=== PATIENT | female | born 1970 | race Caucasian/White ===

== ENCOUNTER → 2023-02-25 08:03 | Outpatient (BNVA) | payer OTHER, SELFPAY | PROVIDERS: Family Provider Nurse Practitioner Family; PCP Clinical Nurse Specialist Adult Health; Visit Provider Clinical Nurse Specialist Adult Health | DX: I10 Essential (primary) hypertension (principal) | CPT/HCPCS: 80053; 80061; 84443; 85025 ==

== ENCOUNTER → 2024-03-15 12:48 | Outpatient (BNVA) | payer OTHER, SELFPAY | PROVIDERS: Family Provider Nurse Practitioner Family; PCP Clinical Nurse Specialist Adult Health; Visit Provider Clinical Nurse Specialist Adult Health | DX: I10 Essential (primary) hypertension (principal); E66.01 Morbid (severe) obesity due to excess calories | CPT/HCPCS: 80053; 80061; 83036; 84443; 85025 ==

== ENCOUNTER 2024-03-29 12:54 | Outpatient (CLI) | payer OTHER, SELFPAY ==
--- NOTE | 2024-03-29 13:00 | MM_ITS ---
WS: [id number] BILATERAL SCREENING DIGITAL TOMOSYNTHESIS MAMMOGRAM WITH CAD HISTORY: screening COMPARISON: 11/25/2017, 02/16/2013 Bilateral CC and MLO views with tomosynthesis and synthetic mammography submitted. Computer aided det ection analyzed. Breast composition: There are scattered areas of fibroglandular density. No suspicious masses, microc alcifications or architectural distortion. MM/[place] [id number] IMPRESSION: BI-RADS: 1 - Negative. FOLLOW UP: 1 Year Follow-up
== END 2024-03-29 12:55 | disposition home or self-care (01) ==
LOC: RAD 12:55
PROVIDERS: Family Provider Nurse Practitioner Family; PCP Clinical Nurse Specialist Adult Health; Visit Provider Clinical Nurse Specialist Adult Health
DX: Z12.31 Encounter for screening mammogram for malignant neoplasm of breast (principal); R92.323 Mammographic fibroglandular density, bilateral breasts
CPT/HCPCS: 77063; 77067

== ENCOUNTER 2024-06-12 19:44 | Observation (INO) | payer OTHER, SELFPAY ==
[2024-06-12] VITALS (34 sets, daily range): BP systolic 126–237; BP diastolic 67–144; PULSE 62–91; RESP 16–20; TEMP 36.6; O2SAT 81–100; BMI 43.0
--- NOTE | 2024-06-12 20:19 | W.ED.ABDPA2 ---
HPI - Abdominal Pain General: Chief Complaint: Abdominal Pain Stated Complaint: abd pain Time Seen by Provider: 06/12/24 20:11 History of Present Illness: 53-year-old female with history of hypertension and obesity who presents to the emergency room with right lower quadrant abdominal pain. She says she felt like she had a bowel movement most of the day. The pain started several hours ago while she was in another town working. She tried to have bowel movements on the way home and could not. She took some laxative when she got home and had a soft bowel movement which was not like her usual constipation she says. Pain is continued to get much worse. She is crying in pain on presentation. She has had some nausea but no vomiting. No dysuria. She has had multiple abdominal surgeries including hysterectomy and ovary removal, gallbladder removal and hernia repairs. As well as a spinal surgery through the abdomen. No known fevers. No chest pain. No shortness of breath. No altered mental status Related Data Home Medications Medication Instructions Recorded Confirmed aspirin 81 mg tablet,delayed 81 mg PO DAILY 01/28/23 03/15/24 release (Adult Aspirin Regimen) cholecalciferol (vitamin D3) 25 25 mcg PO DAILY 01/28/23 03/15/24 mcg (1,000 unit) capsule fexofenadine 180 mg tablet 180 mg PO DAILY 01/28/23 03/15/24 (Allergy Relief (fexofenadine)) hawthorn 500 mg capsule mg PO 01/28/23 03/15/24 magnesium citrate,mag oxide 250 mg mg PO 01/28/23 03/15/24 capsule melatonin 10 mg tablet 10 mg PO DAILY 01/28/23 03/15/24 tocophersolan (vitamin E TPGS) 75 unit PO 01/28/23 03/15/24 unit/mL oral drops zinc acetate 50 mg (zinc) capsule 50 mg PO DAILY 01/28/23 03/15/24 (Galzin) Previous Rx's Medication Instructions Recorded solgar 1 cap PO DAILY #30 caps 01/28/23 losartan 100 mg tablet 100 mg PO DAILY #90 tabs 03/15/24 amlodipine 10 mg tablet 10 mg PO DAILY #90 tabs 05/17/24 Allergies Allergy/AdvReac Type Severity Reaction Status Date / Time cefaclor [From [facility]] Allergy Intermediate hives Verified 06/12/24 20:01 Milk Containing Products Allergy Intermediate migraine Verified 06/12/24 20:01 (Dairy) wheat Allergy Intermediate stomach Verified 06/12/24 20:01 issues codeine Allergy ADR-Vomitin Verified 06/12/24 20:01 g Review of Systems Narrative: Constitutional symptoms: Negative except as documented in HPI. Skin symptoms: Negative except as documented in HPI. Eye symptoms: Negative except as documented in HPI. ENMT symptoms: Negative except as documented in HPI. Respiratory symptoms: Negative except as documented in HPI. Cardiovascular symptoms: Negative except as documented in HPI. Gastrointestinal symptoms: Negative except as documented in HPI. Genitourinary symptoms: Negative except as documented in HPI. Musculoskeletal symptoms: Negative except as documented in HPI. Neurologic symptoms: Negative except as documented in HPI. Psychiatric symptoms: Negative except as documented in HPI. Endocrine symptoms: Negative except as documented in HPI. PFSH ED PFSH: Medical History Morbid obesity due to excess calories Hx of cardiac murmur Venous insufficiency Essential hypertension Surgical History History of back surgery Hx of hysterectomy for benign reasons. no further cervical cancer screening. 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 Physical Exam Narrative: EXAM NARRATIVE: General: Alert, no acute distress. Skin: Warm, dry. Head: Normocephalic, atraumatic. Neck: Supple, trachea midline. Eye: Extraocular movements are intact. Ears, nose, mouth and throat: mucosa moist. Cardiovascular: Regular, Normal peripheral perfusion. Respiratory: Lungs are clear to auscultation, respirations are non-labored, breath sounds are equal, Symmetrical chest wall expansion. Gastrointestinal: Soft, right lower quadrant tenderness to palpation, Non distended Musculoskeletal: Normal ROM, no deformity. Neurological: Alert and oriented, No focal neurological deficit observed. Psychiatric: Cooperative, appropriate mood & affect. Course Vital Signs: Vital signs: Vital Signs Temperature 97.8 F 06/12/24 19:52 Pulse Rate 68 06/12/24 22:06 Respiratory Rate 16 06/12/24 22:06 Blood Pressure 141/67 06/12/24 22:45 Pulse Oximetry 81 L 06/12/24 22:45 Oxygen Delivery Me thod Nasal Cannula 06/12/24 22:45 Oxygen Flow Rate 2 06/12/24 22:45 MDM - Abdominal Pain Medical Decision Making Medical decision making: Differential diagnosis for this patient with right lower quadrant abdominal pain including but not limited to and based on the above HPI, review of systems and physical exam: Ureterolithiasis. Urinary tract infection. Appendicitis. colitis. small bowel obstruction. Crohn's flare. Pancreatitis. Cholelithiasis or cholecystitis. Hepatitis. Diverticulitis. Constipation. ovarian cyst. ovarian torsion Workup: Orders were placed to evaluate differential diagnosis based on the above differential, HPI and exam: Lab Review: Laboratory results were reviewed and interpreted by myself the emergency room physician. Patient does have some leukocytosis with a white count of 11.5. No anemia. Hemoglobin 12.6. No renal failure. BUN and creatinine are 10 and 0.7. No evidence of urinary tract infection. CT of the abdomen pelvis with contrast: Findings compatible with an early acute appendicitis with no evidence of perforation. This was reviewed and interpreted by myself the emergency room physician. I also reviewed the radiology report. I reviewed the patient's medical record Reexamination: Patient has had difficult to control pain and vomiting. She received a total of 3 of Dilaudid and 12 of Zofran and is still having symptoms. We will try morphine and Compazine and Benadryl at this point. No altered mental status. No focal motor deficits. I discussed with her the findings and that we will admit her on antibiotics. Consultation: I spoke with Dr. Manley who is on-call for general surgery who agrees to admission. He recommends Zosyn. N.p.o. diet. Assessment and plan: Acute appendicitis ?IV Zofran and IV Dilaudid, IV Zosyn, IV Compazine, IV Benadryl and IV morphine all given in the emergency room. -I discussed the patient with the hospitalist on-call who is admitting the patient. - Discussed findings and plan with patient. Answered any questions. - All laboratory values were reviewed and interpreted personally by myself, the ER physician - All imaging was reviewed and interpreted personally by myself, the ER physician. - Evaluation and treatment of this problem were appropriate in the emergency setting Lab Data 06/12/24 20:17 06/12/24 20:17 Labs/Radiology: Radiology Impressions Abdomen/Pelvis CT 06/12/24 21:17 IMPRESSION: 1. Findings compatible with early/mild acute appendicitis without evidence of perforation. 2. Hepatomegaly. 3. Colonic diverticulosis without diverticulitis. 4. Status post cholecystectomy. Laboratory Results WBC 11.46 10^3/uL (3.29-11.43) H 06/12/24 20:17 RBC 4.24 10^6/uL (3.85-5.65) 06/12/24 20:17 Hgb 12.90 g/dL (11.27-16.99) 06/12/24 20:17 Hct 38.6 % (36-47) 06/12/24 20:17 MCV 91.0 fl (85-98) 06/12/24 20:17 MCH 30.4 pg (27-33) 06/12/24 20:17 MCHC 33.4 g/dL (30-55) 06/12/24 20:17 RDW 13.8 % (12.1-15.1) 06/12/24 20:17 Plt Count 246 10^3/cmm (157-399) 06/12/24 20:17 MPV 9.9 fL (7.4-10.4) 06/12/24 20:17 Neut % (Auto) 81.6 % 06/12/24 20:17 Lymph % (Auto) 10.0 % 06/12/24 20:17 [place] % (Auto) 6.5 % 06/12/24 20:17 Eos % (Auto) 1.0 % 06/12/24 20:17 Baso % (Auto) 0.6 % 06/12/24 20:17 Neut # (Auto) 9.34 10^3/uL (1.8-7.7) H 06/12/24 20:17 Lymph # (Auto) 1.2 10^3/uL (0.8-4.8) 06/12/24 20:17 [place] # (Auto) 0.7 10^3/uL (0.2-0.9) 06/12/24 20:17 Eos # (Auto) 0.1 10^3/uL (0.0-0.8) 06/12/24 20:17 Baso # (Auto) 0.1 10^3/uL (0.0-0.1) 06/12/24 20:17 Nucleated RBC % (auto) 0 % 06/12/24 20:17 Nucleated RBCs # 0.0 /100WBC 06/12/24 20:17 Sodium 137 mmol/L (136-145) 06/12/24 20:17 Potassium 3.8 mmol/L (3.5-5.1) 06/12/24 20:17 Chloride 99 mmol/L (98-107) 06/12/24 20:17 Carbon Dioxide 24 mmol/L (22-29) 06/12/24 20:17 Anion Gap 17.8 (5-19) 06/12/24 20:17 BUN 10 mg/dL (6-20) 06/12/24 20:17 Creatinine 0.7 mg/dL (0.5-0.9) 06/12/24 20:17 GFR Calculation 87.5 mL/min (90-130) L 06/12/24 20:17 Glucose 133 mg/dL (65-115) H 06/12/24 20:17 Calculated Osmolality 285 mOsm/kg (285-295) 06/12/24 20:17 Calcium 9.3 mg/dL (8.5-10.5) 06/12/24 20:17 Total Bilirubin 0.3 mg/dL (0.15-1.2) 06/12/24 20:17 AST 18 U/L (0-32) 06/12/24 20:17 ALT 23 U/L (0-33) 06/12/24 20:17 Alkaline Phosphatase 103 U/L (35-105) 06/12/24 20:17 Total Protein 7.4 g/dL (6.6-8.7) 06/12/24 20:17 Albumin 4.6 g/dL (3.5-5.2) 06/12/24 20:17 Globulin 2.8 g/dL (1.3-4.6) 06/12/24 20:17 Lipase 16 U/L (13-60) 06/12/24 20:17 Urine Color Yellow (Yellow) 06/12/24 20:12 Urine Appearance Clear (CLEAR) 06/12/24 20:12 Urine pH 6.5 (5-7) 06/12/24 20:12 Ur Specific [place] 1.022 (1.005-1.030) 06/12/24 20:12 Urine Protein Negative (Negative) 06/12/24 20:12 Urine Glucose (UA) Negative (Normal) 06/12/24 20:12 Urine Ketones 1+ (Negative) H 06/12/24 20:12 Urine Blood Negative (Negative) 06/12/24 20:12 Urine Nitrate Negative (Negative) 06/12/24 20:12 Urine Bilirubin Negative (Negative) 06/12/24 20:12 Urine Urobilinogen 1.0 mg/dL (Negative) 06/12/24 20:12 Ur Leukocyte Esterase Negative (Negative) 06/12/24 20:12 Urine RBC 0-2 /hpf (0-2) 06/12/24 20:12 Urine WBC 0-5 /hpf (0-5) 06/12/24 20:12 Ur Squamous Epith Cells 0-5 /hpf (0-5) 06/12/24 20:12 Amorphous Sediment Not Reportable 06/12/24 20:12 Urine Bacteria None seen /hpf (NONE) 06/12/24 20:12 Hyaline Casts 0-4 /lpf H 06/12/24 20:12 All radiology interpretation(s) finalized by discharge Discharge Plan Discharge Patient Disposition: Admitted As Inpatient Clinical Impression: Acute appendicitis Condition: Stable Coding Level of Care Code ED Grade Setter for Zohra Haynes
[2024-06-12 20:26] LABS: Bilirubin Urine Negative (Negative); Blood Urine Negative (Negative); Glucose Urine UA Negative (Normal); Ketones Urine 1+ (Negative); Leukocyte Esterase Urine Negative (Negative); Nitrate Urine Negative (Negative); Protein Urine Negative (Negative); Specific Gravity, Urine 1.022 (1.005-1.030); Urine Appearance Clear (CLEAR); Urine Color Yellow (Yellow); pH Urine 6.5 (5-7)
[2024-06-12 20:28] LABS: Add Urine Microscopic? YES; Bacteria Urine None Seen /hpf; Hyaline Casts Urine 0-4 /lpf; RBC Urine 0-2 /hpf (0-2); Squamous Epithelial Cell Urine 0-5 /hpf (0-5); WBC Urine 0-5 /hpf (0-5)
[2024-06-12] MEDS: ondansetron 2 mg/ML SDV 2 mL 4 MG IVP (20:28)
[2024-06-12] MEDS: HYDROmorphone 1 mg/mL INJ 1 mL IVP (20:29)
[2024-06-12 20:39] LABS: Basophils # 0.1 10^3/uL (0.0-0.1); Basophils % 0.6 %; Eosinophils # 0.1 10^3/uL (0.0-0.8); Hematocrit 38.6 % (36-47); Lymphocytes # 1.2 10^3/uL (0.8-4.8); Mean Corpuscular HGB Conc 33.4 g/dL (30-55); Mean Corpuscular Hemoglobin 30.4 pg (27-33); Mean Platelet Volume 9.9 fL (7.4-10.4); Monocytes # 0.7 10^3/uL (0.2-0.9); Monocytes % 6.5 %; Neutrophils # 9.34 10^3/uL (1.8-7.7); Neutrophils % 81.6 %; Nucleated Red Blood Cells % 0 %; Platelet Count 246 10^3/cmm (157-399); Red Blood Count 4.24 10^6/uL (3.85-5.65); Red Cell Distribution Width 13.8 % (12.1-15.1); White Blood Count 11.46 10^3/uL (3.29-11.43)
[2024-06-12 21:14] LABS: Alanine Aminotransferase 23 U/L (0-33); Albumin Level 4.6 g/dL (3.5-5.2); Alkaline Phosphatase 103 U/L (35-105); Aspartate Amino Transferase 18 U/L (0-32); Blood Urea Nitrogen 10 mg/dL (6-20); Calcium 9.3 mg/dL (8.5-10.5); Carbon Dioxide 24 mmol/L (22-29); Creatinine Clr Calc Pharmacy 144.5899; Globulin 2.8 g/dL (1.3-4.6); Glomerular Filtration Rate 87.5 mL/min (90-130); Glucose 133 mg/dL (65-115); Lipase 16 U/L (13-60); Total Bilirubin 0.3 mg/dL (0.15-1.2); Total Protein 7.4 g/dL (6.6-8.7)
[2024-06-12] MEDS: ketorolac 30 mg/mL INJ IVP (21:16)
--- NOTE | 2024-06-12 21:17 | CTR_ITS ---
PROCEDURE INFORMATION: Exam: CT Abdomen And Pelvis With Contrast Exam date and time: 06/12/2024 9:45 PM Age: 53 years old Clinical indication: Abdominal pain TECHNIQUE: Imaging protocol: Computed tomography of the abdomen and pelvis with contrast. Radiation optimization: All CT scans at this facility use at least one of these dose optimization techniques: automated exposure control; mA and/or kV adjustment per patient size (includes targeted exams where dose is matched to clinical indication); or iterative reconstruction. Contrast material: OMNI 350; Contrast volume: 100 ml; Contrast route: INTRAVENOUS (IV); COMPARISON: No relevant prior studies available. RADIATION DOSE METRICS: Total DLP (mGy-cm): 1270.58 FINDINGS: Lungs: Mild bibasilar atelectasis. Liver: The liver is enlarged, measuring 21.5 cm craniocaudal. No mass. Gallbladder and biliary ducts: Status post cholecystectomy. Pancreas: Mild atrophy of the pancreas. No ductal dilatation. Spleen: Normal. No splenomegaly. Adrenal glands: Normal. No mass. Kidneys and ureters: The right kidney is under rotated. No hydronephrosis. Stomach and bowel: Colonic diverticulosis without evidence of acute diverticulitis. No bowel obstruction. Appendix: The appendix is mildly dilated up to 1 cm. Several hypodense foci within the lumen near the base of the appendix may represent appendicoliths. Mild periappendiceal fat stranding. No evidence of perforation or periappendiceal abscess formation. Intraperitoneal space: Unremarkable. No free air. No significant fluid collection. Vasculature: Unremarkable. No abdominal aortic aneurysm. Lymph nodes: Unremarkable. No enlarged lymph nodes. Urinary bladder: Unremarkable as visualized. Reproductive: Status post hysterectomy. No suspicious adnexal mass. Bones/joints: Interbody cage graft at L4-L5 and L5-S1. No acute fracture. Soft tissues: Unremarkable. CT/CT abdomen pelvis w con* [id number] IMPRESSION: 1. Findings compatible with early/mild acute appendicitis without evidence of perforation. 2. Hepatomegaly. 3. Colonic diverticulosis without diverticulitis. 4. Status post cholecystectomy.
[2024-06-12] MEDS: HYDROmorphone 1 mg/mL INJ 1 mL 2 MG IVP (21:18)
[2024-06-12] MEDS: iohexol 350 mg/mL 500 mL Btl (per mL) IV (21:44)
[2024-06-12] MEDS: ondansetron 2 mg/ML SDV 2 mL 8 MG IVP (22:16)
[2024-06-12 22:48] LABS: Anion Gap 17.8 (5-19); Chloride 99 mmol/L (98-107); Osmolality Calculated 285 mOsm/kg (285-295); Potassium 3.8 mmol/L (3.5-5.1); Sodium 137 mmol/L (136-145)
[2024-06-12] MEDS: diphenhydrAMINE 50 mg/mL SDV 1mL 25 MG IVP (23:26)
[2024-06-12] MEDS: prochlorperazine 10 mg/2 mL Inj IVP (23:27)
[2024-06-13] VITALS (27 sets, daily range): BP systolic 115–163; BP diastolic 67–104; PULSE 53–74; RESP 15–18; TEMP 36.2–36.8; O2SAT 91–99; BMI 41.8
[2024-06-13] MEDS: piperacillin-tazobactam 4.5 GM in sodium chloride 0.9% (plus) 50 ML IV ×2 (00:14→08:00)
[2024-06-13] MEDS: morphine 4 mg/mL SDV 1 mL IVP ×2 (06:45→11:07)
[2024-06-13] MEDS: ondansetron 2 mg/ML SDV 2 mL 4 MG IVP ×2 (06:45→09:28)
[2024-06-13 06:46] LABS: Basophils # 0.1 10^3/uL (0.0-0.1); Basophils % 0.7 %; Eosinophils # 0.1 10^3/uL (0.0-0.8); Hematocrit 36.5 % (36-47); Lymphocytes # 1.1 10^3/uL (0.8-4.8); Lymphocytes % 13.7 %; Mean Corpuscular HGB Conc 31.8 g/dL (30-55); Mean Corpuscular Hemoglobin 30.9 pg (27-33); Mean Corpuscular Volume 97.3 fl (85-98); Mean Platelet Volume 9.8 fL (7.4-10.4); Monocytes # 0.7 10^3/uL (0.2-0.9); Monocytes % 8.3 %; Neutrophils # 6.21 10^3/uL (1.8-7.7); Neutrophils % 75.8 %; Nucleated Red Blood Cells % 0 %; Platelet Count 220 10^3/cmm (157-399); Red Blood Count 3.75 10^6/uL (3.85-5.65); Red Cell Distribution Width 13.9 % (12.1-15.1); White Blood Count 8.19 10^3/uL (3.29-11.43)
[2024-06-13 06:58] LABS: Blood Urea Nitrogen 8 mg/dL (6-20); Calcium 8.4 mg/dL (8.5-10.5); Carbon Dioxide 25 mmol/L (22-29); Chloride 103 mmol/L (98-107); Creatinine Clr Calc Pharmacy 169.7755; Glomerular Filtration Rate 104.6 mL/min (90-130); Glucose 109 mg/dL (65-115); Osmolality Calculated 287 mOsm/kg (285-295); Sodium 139 mmol/L (136-145)
--- NOTE | 2024-06-13 07:23 | PM.HP ---
Providers/Chief Complaint Admitting Physician: Wilson Bowles MD Primary Care Provider: Alberto English Chief Complaint: abd pain History of Present Illness Natasha Dixon is a 53 year old female who presents to the hospital with right lower quadrant abdominal pain over the last 12 hours, she also had some nausea no fever or chills. White count was 11 and CAT scan show evidence of acute appendicitis. Patient has extensive surgical history including multiple hernia repairs in the past. Review of Systems General: Reports: 10 or more systems reviewed and unremarkable except in HPI and below Medications/Allergies Home Medications Medication Instructions Recorded Confirmed Last Taken Type aspirin 81 mg tablet,delayed 81 mg PO DAILY 01/28/23 03/15/24 Unknown History release (Adult Aspirin Regimen) cholecalciferol (vitamin D3) 25 25 mcg PO DAILY 01/28/23 03/15/24 Unknown History mcg (1,000 unit) capsule fexofenadine 180 mg tablet 180 mg PO DAILY 01/28/23 03/15/24 Unknown History (Allergy Relief (fexofenadine)) hawthorn 500 mg capsule mg PO 01/28/23 03/15/24 Unknown History magnesium citrate,mag oxide 250 mg mg PO 01/28/23 03/15/24 Unknown History capsule melatonin 10 mg tablet 10 mg PO DAILY 01/28/23 03/15/24 Unknown History solgar 1 cap PO DAILY #30 caps 01/28/23 03/15/24 Unknown Rx tocophersolan (vitamin E TPGS) 75 unit PO 01/28/23 03/15/24 Unknown History unit/mL oral drops zinc acetate 50 mg (zinc) capsule 50 mg PO DAILY 01/28/23 03/15/24 Unknown History (Galzin) losartan 100 mg tablet 100 mg PO DAILY #90 tabs 03/15/24 03/15/24 Unknown Rx amlodipine 10 mg tablet 10 mg PO DAILY #90 tabs 05/17/24 Unknown Rx Allergies Allergy/AdvReac Type Severity Reaction Status Date / Time cefaclor [From [facility]] Allergy Intermediate hives Verified 06/12/24 20:01 Milk Containing Products Allergy Intermediate migraine Verified 06/12/24 20:01 (Dairy) wheat Allergy Intermediate stomach Verified 06/12/24 20:01 issues codeine Allergy ADR-Vomitin Verified 06/12/24 20:01 g PFSH Acute PFSH: Medical History Morbid obesity due to excess calories Hx of cardiac murmur Venous insufficiency Essential hypertension Surgical History History of back surgery Hx of hysterectomy for benign reasons. no further cervical cancer screening. 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 Nose : Mucous membranes are without erythema. Lungs : Equal chest rise bilaterally, no use of accessory muscles, trachea is midline. CV : Rate and rhythm are normal. Abdomen : Soft, there is tenderness to palpation in the right lower quadrant. Extremities : No edema. Upper extremities are normal bilaterally. Back : non-tender to palpation, no CVA tenderness. Data 06/13/24 06:12 06/13/24 06:12 Micro: Microbiology 06/13/24 00:00 Blood Culture - Preliminary Blood SPECIMEN COLLECTED 06/13/24 00:00 Blood Culture - Preliminary Blood SPECIMEN COLLECTED A&P Assessment and plan (1) Morbid obesity due to excess calories: (2) Acute appendicitis: (3) Essential hypertension: Plan After complete history physical examination and review of all available clinical data the following is my assessment. Patient with acute appendicitis verified by imaging. Laparoscope appendectomy is indicated, have discussed all recent benefits of the operation including the risk of bleeding, infection, injury to surrounding structures, Explained that in her case the risk of injuring surrounding structures increases to multiple intra-abdominal surgeries and the possibility of intra-abdominal adhesions. Risk of intra-abdominal abscess, need for additional operations, enterocutaneous fistula, sepsis. Patient shows understanding wishes to proceed. In the interim we will continue on antibiotics n.p.o. and pain control. Attestations Medical Necessity Statement*: Possible discharge after surgery Coding Level of Care Code Acute Code for [facility] Fwd Diagnoses Morbid obesity due to excess calories E66.01 Acute appendicitis K35.80 Essential hypertension I10
--- NOTE | 2024-06-13 07:27 | P.ANESASSM_ITS ---
Pre-Anesthetic Assessment Height/Weight: Height 1.8 m Weight 141.748 kg Temp Pulse Resp BP Pulse Ox O2 Del Method O2 Flow Rate 97.4 F L 65 16 120/76 95 Nasal Cannula 2 06/13/24 03:56 06/13/24 03:56 06/13/24 06:45 06/13/24 03:56 06/13/24 03:56 06/13/24 01:35 06/12/24 22:45 Operation Date: 06/13/24 12:00 Proposed Procedures p Laparoscopic Appendectomy Possible Open(Not Applicable) - Wilson Bowles MD Familial anesthetic complications: None Was Beta Cristel taken within 24 hours: N/A Was Clonidine taken within 24 hours: N/A Last intake: Intake Last Liquid Date 06/13/24 Last Liquid Time 06:50 Last Solid Date 06/13/24 Last Solid Time 00:00 Social No alcohol and No tobacco Exam alert, oriented x 3, clear to auscultation bilaterally and regular rate & rhythm Airway Mallampati: Class II Dentition: other (1 missing up top, and top front has been broken, but repaired) Comments: Comments: Patient has active cold sore on lower lip CV/HEM Hypertension Metabolic Morbid Obesity Anesthetic Plan ASA status: 3 Anesthesia: General Risk of > 500 ml blood loss (7ml/kg in children): No Medications/Allergies Home Medications Medication Instructions Recorded Confirmed Last Taken Type aspirin 81 mg tablet,delayed 81 mg PO DAILY 01/28/23 03/15/24 Unknown History release (Adult Aspirin Regimen) cholecalciferol (vitamin D3) 25 25 mcg PO DAILY 01/28/23 03/15/24 Unknown History mcg (1,000 unit) capsule fexofenadine 180 mg tablet 180 mg PO DAILY 01/28/23 03/15/24 Unknown History (Allergy Relief (fexofenadine)) hawthorn 500 mg capsule mg PO 01/28/23 03/15/24 Unknown History magnesium citrate,mag oxide 250 mg mg PO 01/28/23 03/15/24 Unknown History capsule melatonin 10 mg tablet 10 mg PO DAILY 01/28/23 03/15/24 Unknown History solgar 1 cap PO DAILY #30 caps 01/28/23 03/15/24 Unknown Rx tocophersolan (vitamin E TPGS) 75 unit PO 01/28/23 03/15/24 Unknown History unit/mL oral drops zinc acetate 50 mg (zinc) capsule 50 mg PO DAILY 01/28/23 03/15/24 Unknown History (Galzin) losartan 100 mg tablet 100 mg PO DAILY #90 tabs 03/15/24 03/15/24 Unknown Rx amlodipine 10 mg tablet 10 mg PO DAILY #90 tabs 05/17/24 Unknown Rx Allergies Allergy/AdvReac Type Severity Reaction Status Date / Time cefaclor [From [facility]] Allergy Intermediate hives Verified 06/12/24 20:01 Milk Containing Products Allergy Intermediate migraine Verified 06/12/24 20:01 (Dairy) wheat Allergy Intermediate stomach Verified 06/12/24 20:01 issues codeine Allergy ADR-Vomitin Verified 06/12/24 20:01 g Current Medications Generic Name Dose Route Start Last Admin Trade Name Freq PRN Reason Stop Dose Admin Morphine Sulfate 4 mg 06/13/24 01:15 06/13/24 06:45 Morphine 4 Mg/Ml Sdv 1 Ml IVP 4 mg Q4H PRN Administration SEVERE PAIN Ondansetron HCl 4 mg 06/13/24 01:15 06/13/24 06:45 Ondansetron 2 Mg/Ml Sdv 2 Ml IVP 4 mg Q6H PRN Administration NAUSEA AND VOMITING PFSH Anesthesia Medical History Morbid obesity due to excess calories Hx of cardiac murmur Venous insufficiency Essential hypertension Surgical History History of back surgery Hx of hysterectomy for benign reasons. no further cervical cancer screening. 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 [employer] Data Anesthesia 06/13/24 06:12 06/13/24 06:12 Short CBC 06/12/24 06/13/24 Range/Units 20:17 06:12 WBC 11.46 H 8.19 (3.29-11.43) 10^3/uL Hgb 12.90 11.60 (11.27-16.99) g/dL Hct 38.6 36.5 (36-47) % MCV 91.0 97.3 D (85-98) fl Plt Count 246 220 (157-399) 10^3/cmm Neut % (Auto) 81.6 75.8 % Neut # (Auto) 9.34 H 6.21 (1.8-7.7) 10^3/uL BMP 06/12/24 06/13/24 20:17 06:12 Sodium 137 139 Potassium 3.8 4.0 Chloride 99 103 Carbon Dioxide 24 25 BUN 10 8 Creatinine 0.7 0.6 Glucose 133 H 109 Calcium 9.3 8.4 L Liver Function 06/12/24 Range/Units 20:17 Total Bilirubin 0.3 (0.15-1.2) mg/dL AST 18 (0-32) U/L ALT 23 (0-33) U/L Alkaline Phosphatase 103 (35-105) U/L Albumin 4.6 (3.5-5.2) g/dL Urine 06/12/24 Range/Units 20:12 Urine Color Yellow (Yellow) Urine Appearance Clear (CLEAR) Urine pH 6.5 (5-7) Ur Specific [place] 1.022 (1.005-1.030) Urine Protein Negative (Negative) Urine Glucose (UA) Negative (Normal) Urine Ketones 1+ H (Negative) Urine Nitrate Negative (Negative) Urine Bilirubin Negative (Negative) Ur Leukocyte Esterase Negative (Negative) Urine RBC 0-2 (0-2) /hpf Urine WBC 0-5 (0-5) /hpf Microbiology 06/13/24 00:00 Blood Culture - Preliminary Blood SPECIMEN COLLECTED 06/13/24 00:00 Blood Culture - Preliminary Blood SPECIMEN COLLECTED Cardiac Studies: 2 No Data to Display
[2024-06-13] MEDS: sodium chloride 0.9% 1,000 ML 30 ML IV (07:34)
[2024-06-13] MEDS: BUPivacaine 0.25% INJ 30 mL 10 ML INJECTION (08:58)
[2024-06-13] MEDS: lidocaine-epi 1% PF 1:200,000 30 mL SDV 10 ML INJECTION (08:58)
--- NOTE | 2024-06-13 09:07 | PM.OP ---
Operative Report Date of procedure: June 13, 2024 Pre-op diagnosis: Acute appendicitis Post-op diagnosis: Same Post-op findings: Inflamed appendix, inflammation of the periappendiceal fat, no perforation Procedure done: Laparoscopic appendectomy Implants: None Specimens removed/disposition: Appendix Surgeon: Wilson Bowles MD Roll Sheeting Cutter: DONATO OR STaff Estimated blood loss: 5 Complications: none apparent Brief History: this a 53-year-old female who scented to the hospital with right lower quadrant pain, CT scan show evidence of appendicitis. After discussion of all recent benefits documented my preop note with side to proceed to the OR for laparoscopic appendectomy. Procedure: Patient was brought into the OR, she was placed in a supine position. General anesthesia was given. The abdomen was prepped and draped in the usual sterile fashion. Timeout was conducted. The abdomen was accessed with an Optiview trocar at Monteiro's point, initial pneumoperitoneum was obtained and no evidence of visceral injury during entry was noted. A 2 mm trocar was then placed under direct visualization in the infraumbilical position and a 5 mm trocar was placed in the left lower quadrant position also under direct visualization. Patient was positioned in steep Trendelenburg with the left side down. The appendix was identified and grasped by the mesoappendix, I was then able to take down the mesoappendix all the way down to the base of the appendix. This was done with LigaSure. The base of the appendix appeared healthy, I transected the appendix at the level of the base using a 45 mm blue load Endo LOYD stapler. The staple line appeared healthy and hemostatic, the specimen was retrieved via the infraumbilical trocar site with an Endo Catch bag. Hemostasis was verified and the Ray-Jocelyn was used to absorb minimal amount of blood around the area of dissection. The rectum was subsequently removed from the abdomen. The abdomen was desufflated for 1 minute and then reinsufflated to verify that hemostasis was adequate. After verifying hemostasis I then proceeded to close the umbilical trocar site using 0 Vicryl in a Oneil-Yara suture passer under direct visualization. The left lower quadrant trocar was then removed under direct visualization and the left upper quadrant trocar was used to evacuate the pneumoperitoneum and subsequently removed. Local anesthesia was infiltrated in the wounds. The wounds were closed in layers using #3-0 Vicryl for the subcutaneous tissue #4 Monocryl for the skin, Dermabond was applied. At the end of the procedure all counts were correct, the patient tolerated well the procedure was transferred to PACU in stable condition.
--- NOTE | 2024-06-13 09:19 | P.DS_ITS ---
Discharge Providers Date of Admission: 06/13/24 00:09 Date of Discharge: June 13, 2024 Attending Provider at Admission: Wilson Bowles MD Attending Provider at Discharge: Wilson Bowles MD Primary Care Provider: Alberto English Diagnoses at Discharge Discharge Diagnosis (1) Morbid obesity due to excess calories: Status: Acute (2) Acute appendicitis: Status: Acute (3) Essential hypertension: Status: Acute Reason for Visit Reason for Visit: abd pain Hospital Course Hospital Course 53-year-old female presenting with acute appendicitis, patient was taken to the OR for laparoscopic appendectomy which was done without complications. In the possibility. Patient doing very well will send home with antibiotic therapy and return in 2 weeks for follow-up. Physical Exam GI: OTHER: Abdomen soft, appropriately tender surgical incisions covered with dressing. Discharge Data Studies Completed and Pending Completed Studies During Hospitalization Category Date Time Status CT abdomen pelvis w con* [id number] Stat Cat Scan 06/12/24 21:17 Completed Pending at discharge Category Date Time Status Blood Culture Stat Lab 06/12/24 23:24 Results Pathology: Surgical [PTH] Routine Pth 06/13/24 08:46 Ordered Radiology Impressions Abdomen/Pelvis CT 06/12/24 21:17 IMPRESSION: 1. Findings compatible with early/mild acute appendicitis without evidence of perforation. 2. Hepatomegaly. 3. Colonic diverticulosis without diverticulitis. 4. Status post cholecystectomy. Laboratory Results WBC 8.19 10^3/uL (3.29-11.43) 06/13/24 06:12 RBC 3.75 10^6/uL (3.85-5.65) L 06/13/24 06:12 Hgb 11.60 g/dL (11.27-16.99) 06/13/24 06:12 Hct 36.5 % (36-47) 06/13/24 06:12 MCV 97.3 fl (85-98) D 06/13/24 06:12 MCH 30.9 pg (27-33) 06/13/24 06:12 MCHC 31.8 g/dL (30-55) 06/13/24 06:12 RDW 13.9 % (12.1-15.1) 06/13/24 06:12 Plt Count 220 10^3/cmm (157-399) 06/13/24 06:12 MPV 9.8 fL (7.4-10.4) 06/13/24 06:12 Neut % (Auto) 75.8 % 06/13/24 06:12 Lymph % (Auto) 13.7 % 06/13/24 06:12 [place] % (Auto) 8.3 % 06/13/24 06:12 Eos % (Auto) 1.0 % 06/13/24 06:12 Baso % (Auto) 0.7 % 06/13/24 06:12 Neut # (Auto) 6.21 10^3/uL (1.8-7.7) 06/13/24 06:12 Lymph # (Auto) 1.1 10^3/uL (0.8-4.8) 06/13/24 06:12 [place] # (Auto) 0.7 10^3/uL (0.2-0.9) 06/13/24 06:12 Eos # (Auto) 0.1 10^3/uL (0.0-0.8) 06/13/24 06:12 Baso # (Auto) 0.1 10^3/uL (0.0-0.1) 06/13/24 06:12 Nucleated RBC % (auto) 0 % 06/13/24 06:12 Nucleated RBCs # 0.0 /100WBC 06/13/24 06:12 Sodium 139 mmol/L (136-145) 06/13/24 06:12 Potassium 4.0 mmol/L (3.5-5.1) 06/13/24 06:12 Chloride 103 mmol/L (98-107) 06/13/24 06:12 Carbon Dioxide 25 mmol/L (22-29) 06/13/24 06:12 Anion Gap 15.0 (5-19) 06/13/24 06:12 BUN 8 mg/dL (6-20) 06/13/24 06:12 Creatinine 0.6 mg/dL (0.5-0.9) 06/13/24 06:12 GFR Calculation 104.6 mL/min (90-130) 06/13/24 06:12 Glucose 109 mg/dL (65-115) 06/13/24 06:12 Calculated Osmolality 287 mOsm/kg (285-295) 06/13/24 06:12 Calcium 8.4 mg/dL (8.5-10.5) L 06/13/24 06:12 Total Bilirubin 0.3 mg/dL (0.15-1.2) 06/12/24 20:17 AST 18 U/L (0-32) 06/12/24 20:17 ALT 23 U/L (0-33) 06/12/24 20:17 Alkaline Phosphatase 103 U/L (35-105) 06/12/24 20:17 Total Protein 7.4 g/dL (6.6-8.7) 06/12/24 20:17 Albumin 4.6 g/dL (3.5-5.2) 06/12/24 20:17 Globulin 2.8 g/dL (1.3-4.6) 06/12/24 20:17 Lipase 16 U/L (13-60) 06/12/24 20:17 Urine Color Yellow (Yellow) 06/12/24 20:12 Urine Appearance Clear (CLEAR) 06/12/24 20:12 Urine pH 6.5 (5-7) 06/12/24 20:12 Ur Specific [place] 1.022 (1.005-1.030) 06/12/24 20:12 Urine Protein Negative (Negative) 06/12/24 20:12 Urine Glucose (UA) Negative (Normal) 06/12/24 20:12 Urine Ketones 1+ (Negative) H 06/12/24 20:12 Urine Blood Negative (Negative) 06/12/24 20:12 Urine Nitrate Negative (Negative) 06/12/24 20:12 Urine Bilirubin Negative (Negative) 06/12/24 20:12 Urine Urobilinogen 1.0 mg/dL (Negative) 06/12/24 20:12 Ur Leukocyte Esterase Negative (Negative) 06/12/24 20:12 Urine RBC 0-2 /hpf (0-2) 06/12/24 20:12 Urine WBC 0-5 /hpf (0-5) 06/12/24 20:12 Ur Squamous Epith Cells 0-5 /hpf (0-5) 06/12/24 20:12 Amorphous Sediment Not Reportable 06/12/24 20:12 Urine Bacteria None seen /hpf (NONE) 06/12/24 20:12 Hyaline Casts 0-4 /lpf H 06/12/24 20:12 Vitals Last Vital Signs Temp 97.7 F 06/13/24 09:16 Pulse 72 06/13/24 09:16 Resp 18 06/13/24 09:16 BP 130/93 06/13/24 09:16 Pulse Ox 98 06/13/24 09:16 O2 Del Method Room Air 06/13/24 09:16 O2 Flow Rate 2 06/12/24 22:45 Discharge Plan Discharge Patient Disposition: Home Condition: Stable Prescriptions: New meloxicam 7.5 mg tablet 7.5 mg PO DAILY 7 Days Qty: 7 0RF oxycodone 5 mg tablet 5 mg PO Q8H PRN (Reason: pain) Qty: 14 0RF ondansetron 4 mg tablet,disintegrating 4 mg PO Q8H PRN (Reason: nausea and vomiting) 4 Days Qty: 14 0RF ciprofloxacin HCl 500 mg tablet 500 mg PO BID Qty: 10 0RF metronidazole 500 mg tablet 500 mg PO Q12H 5 Days Qty: 10 0RF polyethylene glycol 3350 [Miralax] 17 gram powder in packet 17 g PO DAILY Qty: 7 0RF Continued fexofenadine [Allergy Relief (fexofenadine)] 180 mg tablet 180 mg PO DAILY cholecalciferol (vitamin D3) 25 mcg (1,000 unit) capsule 25 mcg PO DAILY Galzin 50 mg (zinc) capsule 50 mg PO DAILY magnesium citrate,mag oxide 250 mg capsule 250 mg PO DAILY aspirin [Adult Aspirin Regimen] 81 mg tablet,delayed release (DR/EC) 81 mg PO DAILY melatonin 10 mg tablet 10 mg PO DAILY losartan 100 mg tablet 100 mg PO DAILY Qty: 90 3RF amlodipine 10 mg tablet 10 mg PO DAILY Qty: 90 0RF vitamin E 268 mg (400 unit) Capsule 268 mg PO DAILY hawthorn lopez 500 mg Capsule 500 mg PO DAILY Solgar No 7 1 cap PO DAILY Discharge Orders: Discharge Order (Routine); Ordered 06/13/24 Ordered By: Wilson Bowles Referrals: MARLA Mcginnis FNP [Nurse Practitioner] - Alberto English NP [Primary Care Provider] - Discharge Diet: Advance as tolerated Discharge Activity: Limit activity as instructed Patient Instructions: Acute Wound Care (DC), Opioid Safety, Post Anesthesia Care Activity Restrictions/Additional Instructions: No heavy lifting over the next 4 to 6 weeks, you can walk is much as possible this will speed up your recovery. You can shower starting the day after tomorrow, let soap and water run over your wounds and then pat dry. Please take your medications as indicated, if you decide to take oxycodone please take the stool softeners or otherwise she will get constipated. Return to the hospital have severe abdominal pain that is getting worse over time fever chills or purulence coming from your wounds. Discharge Attestations Time Spent in Discharge Care*: less than 30 min Quality Metrics Clinical Quality Measures [ No reported AMI, CVA or VTE this stay] Coding Level of Care Code Acute Code for Chg Fwd Diagnoses Morbid obesity due to excess calories E66.01 Acute appendicitis K35.80 Essential hypertension I10
--- NOTE | 2024-06-13 09:50 | ANE.PACU2 ---
Inpatient post-anesthesia follow up: Airway intact: Yes Vital signs: Temperature 97.1 F Pulse Rate 55 Respiratory Rate 15 Blood Pressure 150/94 Pulse Oximetry 96 Oxygen Delivery Me thod Room Air Oxygen Flow Rate 2 Fraction of Inspir ed Oxygen Hydration adequate: Yes Nausea and vomiting: No Pain level: 1 Mental status: Baseline
== END 2024-06-13 16:17 | disposition home or self-care (01) ==
LOC: ER 06-13 00:09 → MEDSURG 06-13 00:46
PROVIDERS: Emergency Medicine; Admitting Provider Surgery; Emergency Provider Emergency Medicine; PCP Clinical Nurse Specialist Adult Health; Visit Provider Surgery
PROC: 0DTJ4ZZ Resection of Appendix, Percutaneous Endoscopic Approach (ICD-10-PCS; CPT 44970; principal; 2024-06-13 08:00)
DX: K35.80 Unspecified acute appendicitis (principal); E66.01 Morbid (severe) obesity due to excess calories; Z68.41 Body mass index [BMI] 40.0-44.9, adult; I10 Essential (primary) hypertension
CPT/HCPCS: 36415; 74177; 80048; 80053; 81001; 83690; 85025; 87040; 88304; 96365; 96375; 96376; 99285; G0378; J0330; J0780; J1100; J1171; J1200; J1885; J2270; J2405; J2543; J2704; J2710; J3010; J3490; J7030

== ENCOUNTER 2025-05-18 01:21 | Emergency (ER) | payer SELFPAY ==
--- OUTSIDE RECORDS SUMMARY | 2025-05-18 01:27 | XMS_ITS | Clinical Summary ---
Author Organization [facility] Address [address] [place] [address] Care Team Providers Care Substation Design Draftsperson Name Role Phone Unavailable Primary Care Provider Unavailabl e Social History Tobacco Use Types Packs/Day Years Used Date Smoking Tobacco: Never Assessed Comments Unknown Sex and Gender Information Value Date Recorded Sex Assigned at Not on file Legal Sex Female 12:36 PM CDT Gender Identity Not on file Sexual Orientation Not on file Plan of Treatment Health Maintenance Due Date Last Done Comments DTAP/TDAP/TD VACCINES (1 - Tdap) 1989 HEPATITIS B VACCINES (1 of 3 - 19+ 3-dose series) 06/18 HPV/Cotest (21-29) 1991 CERVICAL CANCER SCREENING 2000 HPV/Cotest (30-65) 2000 PAP SMEAR 2000 BREAST CANCER SCREENING 2010 COLORECTAL SCREENING 2015 Colorectal Cancer Screening 2015 FIT-DNA Q 3 years 2015 FIT/FOBT Q 1 year 2015 Flex Sig/CT Colonography Q 5 years 2015 ZOSTER VACCINE (1 of 2) 2020 INFLUENZA VACCINE (#1) 2025 Insurance RELIANCE STANDARD ASRM LBP
[2025-05-18 01:31] VITALS: PULSE 67; RESP 18; TEMP 36.4; O2SAT 99; BMI 41.8
--- NOTE | 2025-05-18 02:05 | CTR_ITS ---
PROCEDURE INFORMATION: Exam: CT Abdomen And Pelvis With Contrast Exam date and time: 05/18/2025 2:34 AM Age: 54 years old Clinical indication: Nausea and vomiting; Abdominal pain; Localized; Right; Prior surgery; Surgery date: 6+ months; Surgery type: Gb. Hernia repair. Appy. Full hysterectomy. Lumbar. RT sided abd pain with n/v; Additional info: R abd pain TECHNIQUE: Imaging protocol: Computed tomography of the abdomen and pelvis with contrast. Radiation optimization: All CT scans at this facility use at least one of these dose optimization techniques: automated exposure control; mA and/or kV adjustment per patient size (includes targeted exams where dose is matched to clinical indication); or iterative reconstruction. Contrast material: OMNI 350; Contrast volume: 100 ml; Contrast route: INTRAVENOUS (IV); COMPARISON: CT abdomen pelvis w con* [id number] 06/12/2024 9:45 PM RADIATION DOSE METRICS: Total DLP (mGy-cm): 1314.76 FINDINGS: Lungs: Bibasilar subsegmental atelectasis or scar. Liver: Mild fatty infiltration of the liver. No suspicious liver lesions. Gallbladder and biliary ducts: Prior cholecystectomy. Pancreas: No evidence of pancreatitis. No ductal dilation. Spleen: Spleen is within normal limits. Adrenal glands: Adrenal glands are within expected limits. Kidneys and ureters: No renal or ureteral calculi are identified. No hydronephrosis. Stomach and bowel: Inflammatory change with the base of the cecum and terminal ileum. Some additional small bowel loops in the low left abdomen also appear inflamed. No bowel obstruction. There are colonic diverticula but no focal diverticulitis. Appendix: Prior appendectomy. Intraperitoneal space: No free air. No significant fluid collection. Vasculature: No abdominal aortic aneurysm. Lymph nodes: No pathologically enlarged lymph nodes by CT size criteria. Urinary bladder: Unremarkable as visualized. Reproductive: Prior hysterectomy. Bones/joints: Postsurgical changes to the lower lumbar spine and lumbosacral junction. No acute osseous findings. Soft tissues: Unremarkable. CT/CT abdomen pelvis w con* [id number] IMPRESSION: 1. Findings suggestive of multifocal enterocolitis, primarily affecting the terminal ileum, small bowel in the left lower quadrant, and the cecum. 2. Hepatic steatosis. 3. Colonic diverticulosis.
[2025-05-18] MEDS: ondansetron 2 mg/ML SDV 2 mL 4 MG IVP (02:28)
[2025-05-18] MEDS: morphine 4 mg/mL SDV 1 mL IVP (02:29)
[2025-05-18 02:38] LABS: Hematocrit 38.2 % (36-47); Hemoglobin 12.80 g/dL (11.27-16.99); Mean Corpuscular HGB Conc 33.5 g/dL (30-55); Mean Corpuscular Hemoglobin 30.7 pg (27-33); Mean Corpuscular Volume 91.6 fl (85-98); Nucleated Red Blood Cells % 0 %; Platelet Count 232 10^3/cmm (157-399); Red Blood Count 4.17 10^6/uL (3.85-5.65); White Blood Count 8.47 10^3/uL (3.29-11.43)
[2025-05-18] MEDS: iohexol 350 mg/mL 500 mL Btl (per mL) IV (02:47)
[2025-05-18 02:52] LABS: Lactic Sepsis W/Reflex 1.9 mmol/L (0.5-2.2)
[2025-05-18 02:53] LABS: Alanine Aminotransferase 32 U/L (0-33); Albumin Level 4.3 g/dL (3.5-5.2); Alkaline Phosphatase 91 U/L (35-105); Anion Gap 15.5 (5-19); Aspartate Amino Transferase 22 U/L (0-32); Blood Urea Nitrogen 12 mg/dL (6-20); Calcium 9.3 mg/dL (8.5-10.5); Carbon Dioxide 24 mmol/L (22-29); Chloride 100 mmol/L (98-107); Creatinine Clr Calc Pharmacy 140.5597; Globulin 2.4 g/dL (1.3-4.6); Glucose 128 mg/dL (65-115); Lipase 15 U/L (13-60); Osmolality Calculated 283 mOsm/kg (285-295); Potassium 3.5 mmol/L (3.5-5.1); Sodium 136 mmol/L (136-145); Total Protein 6.7 g/dL (6.6-8.7)
[2025-05-18 03:40] VITALS: PULSE 82; RESP 16; O2SAT 93
[2025-05-18 04:16] LABS: Glucose Urine UA Negative (Normal); Nitrate Urine Negative (Negative)
--- NOTE | 2025-05-18 04:18 | W.ED.ABDPA2 ---
HPI - Abdominal Pain General: Chief Complaint: Abdominal Pain Stated Complaint: Severe abd pain lower RTQ,N/V Time Seen by Provider: 05/18/25 01:56 History of Present Illness: Patient is a 54-year-old female presenting with acute onset of lower abdominal pain that began tonight between 9:00-10:00 PM. The pain is localized to the right lower and upper quadrants. She describes the pain as severe enough to cause significant discomfort in any position. The patient reports one episode of vomiting tonight after attempting to lie down on the couch. She denies back pain but notes her back feels uncomfortable due to lack of support, which exacerbates her abdominal discomfort. Of note, the patient underwent an appendectomy approximately one year ago and states the current pain is similar to what she experienced prior to that procedure. Regarding bowel movements, she reports having a normal bowel movement at work today that was half round and normal, half soft, followed by another soft bowel movement a few hours later. Shortly before vomiting, she had another soft bowel movement that she initially thought was gas. She denies any changes in urination, reporting urine habits are great. Related Data Home Medications ?Medication ?Instructions ?Recorded ?Confirmed aspirin 81 mg tablet,delayed 81 mg PO DAILY 01/28/23 03/07/25 release (Adult Aspirin Regimen) cholecalciferol (vitamin D3) 25 25 mcg PO DAILY 01/28/23 03/07/25 mcg (1,000 unit) capsule fexofenadine 180 mg tablet 180 mg PO DAILY 01/28/23 03/07/25 (Allergy Relief (fexofenadine)) magnesium citrate,mag oxide 250 mg 250 mg PO DAILY 01/28/23 03/07/25 capsule melatonin 10 mg tablet 10 mg PO DAILY 01/28/23 03/07/25 zinc acetate 50 mg (zinc) capsule 50 mg PO DAILY 01/28/23 03/07/25 (Galzin) Solgar No 7 1 cap PO DAILY 06/13/24 03/07/25 hawthorn 500 mg capsule (hawthorn 500 mg PO DAILY 06/13/24 03/07/25 jessica) vitamin E 268 mg (400 unit) capsule 268 mg PO DAILY 06/13/24 03/07/25 Previous Rx's ?Medication ?Instructions ?Recorded amlodipine 10 mg tablet 10 mg PO DAILY #90 tabs 03/07/25 hydrochlorothiazide 12.5 mg tablet 12.5 mg PO DAILY #30 tabs 05/01/25 losartan 50 mg tablet 50 mg PO DAILY #30 tabs 05/01/25 ciprofloxacin HCl 500 mg tablet 500 mg PO BID #14 tabs 05/18/25 hydrocodone 5 mg-acetaminophen 325 1 tab PO Q8H PRN pain #7 tabs 05/18/25 mg tablet metronidazole 500 mg tablet 500 mg PO Q8H 7 days #21 tabs 05/18/25 ondansetron 4 mg disintegrating 4 mg PO Q6H PRN nausea and 05/18/25 tablet vomiting #14 tabs Allergies Allergy/AdvReac Type Severity Reaction Status Date / Time cefaclor (From [facility]) Allergy Intermediate hives Verified 03/07/25 14:12 Milk Containing Products Allergy Intermediate migraine Verified 03/07/25 14:12 (Dairy) wheat Allergy Intermediate stomach Verified 03/07/25 14:12 issues codeine Allergy ADR-Vomitin Verified 03/07/25 14:12 g PFSH ED PFSH: Medical History BMI 40.0-44.9, adult Morbid obesity due to excess calories Hx of cardiac murmur Venous insufficiency Essential hypertension Surgical History History of back surgery Hx of hysterectomy for benign reasons. no further cervical cancer screening. 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 [employer] Physical Exam Const: COMMON NORMALS: no acute distress GENERAL APPEARANCE: cooperative; not ill appearing and not frail appearing HENMT: COMMON NORMALS: normocephalic, atraumatic and Normal external nose present HEAD & SCALP: normocephalic and atraumatic FACE & SINUS: normal facial exam and face symmetric NOSE: Normal external nose present Eye: COMMON NORMALS: Equal, round and reactive pupils present and EOMs intact bilaterally PUPIL: Yes Equal, round and reactive pupils present Neck/C-Spine: GENERAL: Yes trachea midline Chest: CHEST: Yes Symmetrical chest wall rise Resp: COMMON NORMALS: normal respiratory effort, No retractions, No use of accessory muscles and clear to auscultation bilaterally AUSCULTATION: clear to auscultation bilaterally Cardio: COMMON NORMALS: regular rate and regular rhythm RATE: regular rate RHYTHM: regular rhythm GI: COMMON NORMALS: Normal to inspection, nondistended, normoactive bowel sounds present PALPATION: Yes Tenderness to palpation present (GI) Details: RLQ and RUQ Extremity: COMMON NORMALS: no pedal edema Neuro: DEAN COMA SCALE: document GCS findings [place] coma scale eye opening: Spontaneous [place] coma scale verbal response: Orientated [place] coma scale motor response: Obey commands [place] coma scale total score: 15 SENSORY EXAM: Yes extremities (intact) Psych: COMMON NORMALS: speech normal SPEECH: Yes normal speech Skin: COMMON NORMALS: no rashes or lesions noted GENERAL SKIN EXAM: no rashes or lesions noted Course Vital Signs: Vital signs: Vital Signs Temperature 97.6 F 05/18/25 01:31 Pulse Rate 82 05/18/25 03:40 Respiratory Rate 16 05/18/25 03:40 Pulse Oximetry 93 05/18/25 03:40 Oxygen Delivery Me thod Room Air 05/18/25 03:40 MDM - Abdominal Pain Medical Decision Making Vitals are stable. She is afebrile. CBC and BMP are unremarkable. Lactic acid is 1.9. Lipase is 15. CRP is 9.1. CT shows multifocal enterocolitis primary affecting the terminal ileum small bowel in the left lower quadrant and the cecum. She will be given antibiotics for this for coverage, although this may be viral. She is improved after fluid and pain medicine as well as nausea medication here. She is stable for discharge. She knows to return for worsening symptoms. Lab Data 05/18/25 02:21 05/18/25 02:21 Labs/Radiology: Radiology Impressions Abdomen/Pelvis CT 05/18/25 02:05 IMPRESSION: 1. Findings suggestive of multifocal enterocolitis, primarily affecting the terminal ileum, small bowel in the left lower quadrant, and the cecum. 2. Hepatic steatosis. 3. Colonic diverticulosis. Laboratory Results WBC 8.47 10^3/uL (3.29-11.43) 05/18/25 02:21 RBC 4.17 10^6/uL (3.85-5.65) 05/18/25 02:21 Hgb 12.80 g/dL (11.27-16.99) 05/18/25 02:21 Hct 38.2 % (36-47) 05/18/25 02:21 MCV 91.6 fl (85-98) 05/18/25 02:21 MCH 30.7 pg (27-33) 05/18/25 02:21 MCHC 33.5 g/dL (30-55) 05/18/25 02:21 RDW 13.8 % (12.1-15.1) 05/18/25 02:21 Plt Count 232 10^3/cmm (157-399) 05/18/25 02:21 MPV 9.8 fL (7.4-10.4) 05/18/25 02:21 Neut % (Auto) 83.2 % 05/18/25 02:21 Lymph % (Auto) 10.2 % 05/18/25 02:21 Nelson % (Auto) 4.7 % 05/18/25 02:21 Eos % (Auto) 0.8 % 05/18/25 02:21 Baso % (Auto) 0.7 % 05/18/25 02:21 Neut # (Auto) 7.05 10^3/uL (1.8-7.7) 05/18/25 02:21 Lymph # (Auto) 0.9 10^3/uL (0.8-4.8) 05/18/25 02:21 Nelson # (Auto) 0.4 10^3/uL (0.2-0.9) 05/18/25 02:21 Eos # (Auto) 0.1 10^3/uL (0.0-0.8) 05/18/25 02:21 Baso # (Auto) 0.1 10^3/uL (0.0-0.1) 05/18/25 02:21 Nucleated RBC % (auto) 0 % 05/18/25 02:21 Nucleated RBCs # 0.0 /100WBC 05/18/25 02:21 Sodium 136 mmol/L (136-145) 05/18/25 02:21 Potassium 3.5 mmol/L (3.5-5.1) 05/18/25 02:21 Chloride 100 mmol/L (98-107) 05/18/25 02:21 Carbon Dioxide 24 mmol/L (22-29) 05/18/25 02:21 Anion Gap 15.5 (5-19) 05/18/25 02:21 BUN 12 mg/dL (6-20) 05/18/25 02:21 Creatinine 0.7 mg/dL (0.5-0.9) 05/18/25 02:21 GFR Calculation 87.2 mL/min (90-130) L 05/18/25 02:21 Glucose 128 mg/dL (65-115) H 05/18/25 02:21 Calculated Osmolality 283 mOsm/kg (285-295) L 05/18/25 02:21 Lactic Acid 1.9 mmol/L (0.5-2.2) 05/18/25 02:21 Calcium 9.3 mg/dL (8.5-10.5) 05/18/25 02:21 Total Bilirubin 0.3 mg/dL (0.15-1.2) 05/18/25 02:21 AST 22 U/L (0-32) 05/18/25 02:21 ALT 32 U/L (0-33) 05/18/25 02:21 Alkaline Phosphatase 91 U/L (35-105) 05/18/25 02:21 Creatine Kinase 97 U/L (26-192) 05/18/25 02:21 C-Reactive Protein 9.1 mg/L (0.0-4.9) H 05/18/25 02:21 Total Protein 6.7 g/dL (6.6-8.7) 05/18/25 02:21 Albumin 4.3 g/dL (3.5-5.2) 05/18/25 02:21 Globulin 2.4 g/dL (1.3-4.6) 05/18/25 02:21 Lipase 15 U/L (13-60) 05/18/25 02:21 Urine Color Yellow (Yellow) 05/18/25 03:29 Urine Appearance Clear (CLEAR) 05/18/25 03:29 Urine pH 6.5 (5-7) 05/18/25 03:29 Ur Specific [place] 1.050 (1.005-1.030) H 05/18/25 03:29 Urine Protein Negative (Negative) 05/18/25 03:29 Urine Glucose (UA) Negative (Normal) 05/18/25 03:29 Urine Ketones Negative (Negative) 05/18/25 03:29 Urine Blood Negative (Negative) 05/18/25 03:29 Urine Nitrate Negative (Negative) 05/18/25 03:29 Urine Bilirubin Negative (Negative) 05/18/25 03:29 Urine Urobilinogen 0.2 mg/dL (Negative) 05/18/25 03:29 Ur Leukocyte Esterase Negative (Negative) 05/18/25 03:29 Urine RBC 0-2 /hpf (0-2) 05/18/25 03:29 Urine WBC 0-5 /hpf (0-5) 05/18/25 03:29 Ur Squamous Epith Cells 0-5 /hpf (0-5) 05/18/25 03:29 Amorphous Sediment Not Reportable 05/18/25 03:29 Urine Bacteria None seen /hpf (NONE) 05/18/25 03:29 Hyaline Casts 1.65 /lpf 05/18/25 03:29 All radiology interpretation(s) finalized by discharge Discharge Plan Discharge Patient Disposition: Home Clinical Impression: Enterocolitis Condition: Stable Prescriptions: New metronidazole 500 mg tablet 500 mg PO Q8H 7 Days Qty: 21 0RF ciprofloxacin HCl 500 mg tablet 500 mg PO BID Qty: 14 0RF hydrocodone-acetaminophen 5-325 mg tablet 1 tab PO Q8H PRN (Reason: pain) Qty: 7 0RF ondansetron 4 mg tablet,disintegrating 4 mg PO Q6H PRN (Reason: nausea and vomiting) Qty: 14 0RF No Action fexofenadine [Allergy Relief (fexofenadine)] 180 mg tablet 180 mg PO DAILY cholecalciferol (vitamin D3) 25 mcg (1,000 unit) capsule 25 mcg PO DAILY Galzin 50 mg (zinc) capsule 50 mg PO DAILY magnesium citrate,mag oxide 250 mg capsule 250 mg PO DAILY aspirin [Adult Aspirin Regimen] 81 mg tablet,delayed release (DR/EC) 81 mg PO DAILY melatonin 10 mg tablet 10 mg PO DAILY amlodipine 10 mg tablet 10 mg PO DAILY Qty: 90 0RF hydrochlorothiazide 12.5 mg tablet 12.5 mg PO DAILY Qty: 30 1RF losartan 50 mg tablet 50 mg PO DAILY Qty: 30 1RF vitamin E 268 mg (400 unit) Capsule 268 mg PO DAILY hawthorn lopez 500 mg Capsule 500 mg PO DAILY Solgar No 7 1 cap PO DAILY Discharge Orders: Discharge ED (Routine); Ordered 05/18/25 Ordered By: Gilmer Chiu Referrals: Peter Lopez MD [Primary Care Provider, Family Practice] - 4-7 days Patient Instructions: Abdominal Pain (ED), Enteritis (ED), Opioid Safety, Pain Management, Patient Portal & Jamshid Instructions Activity Restrictions/Additional Instructions: Follow a liquid diet for the next 12 hours, then you may advance as pain and nausea improve. Antibiotics as directed. You may take medication for pain and nausea as prescribed. Drink plenty of liquids. Return for worsening pain despite 2-3 doses of antibiotics, vomiting liquids or medication, fever despite 2-3 doses of antibiotics, any other concerning symptoms. Call your doctor Tuesday for follow-up appointment next week. Print Language: Czech Coding Level of Care Code ED Counseling Director for Zohra Haynes
[2025-05-18 04:22] LABS: Add Urine Microscopic? YES
[2025-05-18 04:24] LABS: Specific Gravity, Urine 1.050 (1.005-1.030)
[2025-05-18 04:58] VITALS: BP 150/81; PULSE 86; RESP 16; O2SAT 98
== END 2025-05-18 04:59 | disposition home or self-care (01) ==
PROVIDERS: Emergency Provider Emergency Medicine; PCP Family Medicine
DX: K52.9 Noninfective gastroenteritis and colitis, unspecified (principal); Z79.82 Long term (current) use of aspirin; I10 Essential (primary) hypertension
CPT/HCPCS: 36415; 74177; 80053; 81001; 82550; 83605; 83690; 85025; 86140; 96361; 96374; 96375; 99285; J1885; J2270; J2405; J7030; J9999

== ENCOUNTER → 2025-05-24 12:12 | Outpatient (BNVA) | payer OTHER, SELFPAY | PROVIDERS: PCP Family Medicine; Visit Provider Emergency Medicine | DX: R10.A0 Flank pain, unspecified side (principal) | CPT/HCPCS: 81000 ==